=== PATIENT | female | born 1965 | race Caucasian/White ===

== ENCOUNTER → 2020-10-30 12:56 | Outpatient (BNVA) | payer BC, SELFPAY | PROVIDERS: Visit Provider Nurse Practitioner Family | DX: S93.401A Sprain of unspecified ligament of right ankle, initial encounter (principal); X58.XXXA Exposure to other specified factors, initial encounter | CPT/HCPCS: 73610 ==

== ENCOUNTER → 2020-11-05 10:48 | Outpatient (BNVA) | payer BC, SELFPAY | PROVIDERS: Visit Provider Nurse Practitioner Family | DX: M79.661 Pain in right lower leg (principal); R60.0 Localized edema | CPT/HCPCS: 73590 ==

== ENCOUNTER → 2021-05-13 12:41 | Outpatient (BNVA) | payer BC, SELFPAY | PROVIDERS: PCP Family Medicine; Visit Provider Pediatrics | DX: N83.299 Other ovarian cyst, unspecified side (principal) | CPT/HCPCS: 82378; 86304 ==

== ENCOUNTER → 2021-05-29 10:19 | Outpatient (BNVA) | payer BC, SELFPAY | PROVIDERS: PCP Family Medicine; Visit Provider Emergency Medicine | DX: N39.0 Urinary tract infection, site not specified (principal); R30.0 Dysuria | CPT/HCPCS: 81000; 87086 ==

== ENCOUNTER → 2024-09-22 11:16 | Outpatient (BNVA) | payer BC, SELFPAY | PROVIDERS: Visit Provider Nurse Practitioner | DX: R50.9 Fever, unspecified (principal) | CPT/HCPCS: 87400 ==